=== PATIENT | female | born 1990 | race Two or more races ===

== ENCOUNTER → 2020-03-18 | Outpatient (CLI) | payer OTHER | END | disposition home or self-care (01) | LOC: PRENATAL 16:00 | DX: O26.842 Uterine size-date discrepancy, second trimester (principal) ==

== ENCOUNTER → 2020-05-27 | Outpatient (CLI) | payer OTHER | END | disposition home or self-care (01) | LOC: PRENATAL 10:46 | PROVIDERS: ATTEND Obstetrics & Gynecology | DX: O26.843 Uterine size-date discrepancy, third trimester (principal) ==

== ENCOUNTER 2020-08-10 08:05 | Inpatient (IN) | payer OTHER ==
[~2020-08-10] VITALS: Ht 157.5 cm; Wt 73.5 kg
[2020-08-12] MEDS ORDERED: PANTOPRAZOLE SO20 MG PO (07:57)
[2020-08-12] MEDS ORDERED: ASPIRIN81 MG (07:57)
[2020-08-12] MEDS ORDERED: PRENATAL + DHA1 EAC1 (07:58)
== END 2020-08-13 12:22 | disposition home or self-care (01) | DRG 807 ==
LOC: SURG-SUITE 08:05 → LDR 08:05 → SURG-SUITE 08-11 08:34
PROVIDERS: ADMIT Obstetrics & Gynecology; ATTEND Obstetrics & Gynecology
PROC: 10E0XZZ Delivery of Products of Conception, External Approach (ICD-10-PCS; principal; 2020-08-11)
PROC: 3E033VJ Introduction of Other Hormone into Peripheral Vein, Percutaneous Approach (ICD-10-PCS; 2020-08-11)
PROC: 4A1HXFZ Monitoring of Products of Conception, Cardiac Rhythm, External Approach (ICD-10-PCS; 2020-08-11)
PROC: 0HQ9XZZ Repair Perineum Skin, External Approach (ICD-10-PCS; 2020-08-11)
DX: O70.0 First degree perineal laceration during delivery (principal); Z37.0 Single live birth; Z3A.39 39 weeks gestation of pregnancy; Z20.828 Contact with and (suspected) exposure to other viral communicable diseases

== ENCOUNTER 2022-01-21 07:49 | Outpatient (CLI) | payer OTHER ==
[~2022-01-21 07:49] MED LIST: ASPIRIN81 MG; PANTOPRAZOLE SO20 MG PO; PRENATAL + DHA1 EAC1
== END 2022-01-21 09:15 | disposition home or self-care (01) ==
LOC: PRENATAL 07:49
PROVIDERS: ATTEND Obstetrics & Gynecology Maternal & Fetal Medicine
DX: O35.0XX0 Maternal care for (suspected) central nervous system malformation in fetus, not applicable or unspecified (principal); O35.3XX0 Maternal care for (suspected) damage to fetus from viral disease in mother, not applicable or unspecified; O43.90 Unspecified placental disorder, unspecified trimester

== ENCOUNTER 2022-05-22 15:39 | Inpatient (IN) | payer OTHER ==
[~2022-05-22] VITALS: Ht 157.5 cm; Wt 76.2 kg
== END 2022-05-24 11:21 | disposition home or self-care (01) | DRG 807 ==
LOC: LDR 15:39 → SURG-SUITE 17:58
PROVIDERS: ADMIT Obstetrics & Gynecology; ATTEND Obstetrics & Gynecology
PROC: 10E0XZZ Delivery of Products of Conception, External Approach (ICD-10-PCS; principal; 2022-05-22)
PROC: 4A1HXCZ Monitoring of Products of Conception, Cardiac Rate, External Approach (ICD-10-PCS; 2022-05-22)
DX: O80 Encounter for full-term uncomplicated delivery (principal); Z37.0 Single live birth; Z3A.39 39 weeks gestation of pregnancy; Z20.822 Contact with and (suspected) exposure to COVID-19